=== PATIENT | male | born 1950 | race African-American/Black ===

== ENCOUNTER 2019-03-07 05:21 | Inpatient (IN) | payer MEDICARE ==
--- NOTE | 2019-03-07 06:57 | XRay Report ---
PROCEDURE: XR CHEST 1V AP TECHNIQUE: Chest radiograph single view. HISTORY: hypertension COMPARISONS: None . FINDINGS: Heart: The heart is mildly enlarged.. Mediastinum/Vessels: Normal. Lungs/Pleural space: There is bilateral interstitial prominence. Pleural fluid is not seen.. Bony thorax: No acute osseous abnormality. Life support devices: None. IMPRESSION: Cardiomegaly with bilateral interstitial prominence. Congestive heart failure is suspect ed.. This document is electronically signed by Ernesto Barlow MD., March 07 2019 06:55:10 AM ET
--- NOTE | 2019-03-07 07:11 | Emergency Department Report ---
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 He does not complain of any sort of chest pressure tightness or pain. He does speak Tongan and clean well but there is some difficulty as he is a very vague historian. 5 days ago he did not feel well. He describes it as a dizziness. I think he is referring to generalized weakness. He gave in "cupping". He states that that made him feel better. Last night he had an episode of shortness of breath without any sort of chest discomfort. He denies cough he denies leg pain cramping or swelling. His drove him to the hospital last night. The patient has been in this country for many years. He's had no recent travel. 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 He said no sick contacts. He denies previous hospitalization. 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 -: Gradual Consistency: now resolved Improves with: none Worsens with: none Associated Symptoms: denies other symptoms, shortness of breath - Related Data Allergies Allergy/AdvReac Type Severity Reaction Status Date / Time shellfish derived Allergy Itching Verified 03/07/19 05:58 seafoods Allergy Itching Uncoded 03/07/19 05:57 ED Review of Systems ROS: Stated complaint: CHEST PAIN Other details as noted in HPI Constitutional: malaise, weakness. denies: chills, fever Eyes: denies: eye pain, eye discharge, vision change ENT: denies: ear pain, throat pain Respiratory: shortness of breath. denies: cough, wheezing Cardiovascular: denies: chest pain, palpitations Endocrine: no symptoms reported Gastrointestinal: denies: abdominal pain, nausea, diarrhea Genitourinary: denies: urgency, dysuria Musculoskeletal: denies: back pain, joint swelling, arthralgia Skin: denies: rash, lesions Neurological: denies: headache, weakness, paresthesias Psychiatric: denies: anxiety, depression Hematological/Lymphatic: denies: easy bleeding, easy bruising ED Past Medical Hx - Past Medical History Previous Medical History?: No - Surgical History Additional Surgical History: 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 Cataract surgery O.D. - Social History Smoking Status: Former Smoker Substance Use Type: None ED Physical Exam - General Limitations: No Limitations General appearance: alert, in no apparent distress - Head Head exam: Present: atraumatic, normocephalic - Eye Eye exam: Present: normal appearance. Absent: scleral icterus - ENT ENT exam: Present: mucous membranes moist - Neck Neck exam: Present: normal inspection. Absent: tenderness, meningismus - Respiratory Respiratory exam: Present: normal lung sounds bilaterally. Absent: respiratory distress - Cardiovascular Cardiovascular Exam: Present: regular rate, normal rhythm. Absent: systolic murmur, diastolic murmur, rubs, gallop - GI/Abdominal GI/Abdominal exam: Present: soft, normal bowel sounds. Absent: distended, tenderness, guarding, rebound, rigid - Rectal Rectal exam: Present: deferred - Extremities Exam Extremities exam: Present: normal capillary refill, other (toe amputation right foot, 2 erythematous circumferential cupping burleson right posterior shoulder). Absent: calf tenderness - Back Exam Back exam: Present: normal inspection - Neurological Exam Neurological exam: Present: alert, oriented X3, CN II-XII intact. Absent: motor sensory deficit - Psychiatric Psychiatric exam: Present: normal affect, normal mood - Skin Skin exam: Present: warm, dry, intact, normal color. Absent: rash ED Course Vital Signs 03/07/19 03/07/19 03/07/19 05:25 05:58 07:00 Temperature 97.6 F 98.3 F Pulse Rate 101 H 88 90 Respiratory 18 20 20 Rate Blood Pressure 137/83 113/69 Blood Pressure 126/78 [Left] O2 Sat by Pulse 89 93 95 Oximetry - Reevaluation(s) Reevaluation #1: Discussed with cardiology, Dr. Oakes. They state that they will see the patient within the next or 2. I believe he has a non-STEMI associated with CHF. They are aware. I will heparinize him at this point. They asked the hospitalist to admit 03/07/19 08:22 Reevaluation #2: Discussed with hospitalist. Dr. Teran to admit. 03/07/19 08:38 ED Medical Decision Making - Lab Data Result diagrams: 03/07/19 07:08 Laboratory Results - last 24 hr 03/07/19 03/07/19 03/07/19 07:08 07:08 07:08 PT 12.7 INR 0.98 APTT 32.6 D-Dimer 190.62 Sodium 142 Potassium 3.8 Chloride 104.7 Carbon Dioxide 23 Anion Gap 18 BUN 15 Creatinine 1.0 Estimated GFR > 60 BUN/Creatinine Ratio 15 Glucose 115 H Calcium 8.4 Magnesium 2.10 Total Bilirubin 0.40 Direct Bilirubin < 0.2 AST 26 ALT 32 Alkaline Phosphatase 35 CK-MB (CK-2) 5.1 H Troponin T 1.140 H* NT-Pro-B Natriuret Pep 3720 H Total Protein 6.2 L Albumin 3.6 L Albumin/Globulin Ratio 1.4 - EKG Data -: EKG Interpreted by Me EKG shows normal: sinus rhythm Rate: normal - EKG Data Interpretation: LVH (left atrial enlargement, suggesting LVH, suggests associated repolarization abnormality secondary to LVH, consider ischemia, occasional ectopic beat) - Radiology Data Radiology results: image reviewed (chest x-ray appears consistent with cardiomegaly and CHF) Heart: The heart is mildly enlarged.. Mediastinum/Vessels: Normal. Lungs/Pleural space: There is bilateral interstitial prominence. Pleural fluid is not seen.. Bony thorax: No acute osseous abnormality. Life support devices: None. IMPRESSION: Cardiomegaly with bilateral interstitial prominence. Congestive heart failure is suspected.. Critical Care Time: Yes Critical care time in (mins) excluding proc time.: 60 Critical care attestation.: If time is entered above; I have spent that time in minutes in the direct care of this critically ill patient, excluding procedure time. ED Disposition Clinical Impression: Non-STEMI (non-ST elevated myocardial infarction) Congestive heart failure Qualifiers: Heart failure type: unspecified Heart failure chronicity: acute Qualified Code(s): I50.9 - Heart failure, unspecified Disposition: DC-09 OP ADMIT IP TO THIS HOSP Is pt being admited?: Yes Does the pt Need Aspirin: Yes Condition: Stable Referrals: SANDRA MOORE MD [Primary Care Provider] - 3-5 Days Time of Disposition: 08:40
[2019-03-07 07:54] LABS: INR 0.98 (0.87-1.13)
[2019-03-07 07:55] LABS: Partial Thromboplastin Time 32.6 Sec. (24.2-36.6)
[2019-03-07 08:02] LABS: Creatine Kinase MB 5.1 ng/mL (0.0-4.0)
[2019-03-07 08:08] LABS: Alanine Aminotransferase 32 units/L (7-56); Albumin 3.6 g/dL (3.9-5); BUN/Creatinine Ratio 15; Blood Urea Nitrogen 15 mg/dL (9-20); Calcium 8.4 mg/dL (8.4-10.2); Hemolysis Index 5
[2019-03-07 08:11] LABS: Bilirubin,Direct < 0.2 mg/dL (0-0.2)
[2019-03-07] MEDS ORDERED: LASIX IV ONE (08:19)
[2019-03-07] MEDS ORDERED: HEPARIN 10,000 UNITS/10 ML IV ONE (08:20)
[2019-03-07] MEDS ORDERED: ASPIRIN PO ONE (08:21)
[2019-03-07 08:52] LABS: Chol/HDL Ratio 4.5 %
[2019-03-07 09:01] LABS: Hematocrit 39.2 % (35.5-45.6); Hemoglobin 13.6 gm/dl (11.8-15.2)
[2019-03-07] MEDS: HEPARIN/ 0.45% NACL-25,000 UNIT/500 ML 25,000 UNIT/500 ML BAG IV SCH (09:01)
[2019-03-07] MEDS ORDERED: MORPHINE IV PRN (09:36)
--- NOTE | 2019-03-07 09:36 | History and Physical Report ---
History of Present Illness Date of examination: 03/07/19 Date of admission: 03/07/19 Chief complaint: Shortness of breath, elevated troponin level, CHF exacerbation. History of present illness: Patient is a 68-year-old gentleman who has a history of congestive heart f ailure, diabetes and hypertension started having left-sided dull chest pain yesterday. 7-8/10 in severity. Chest pain was exertional, none radiatory and Intermittent. Denies any diaphoresis. Has shortness of breath. His father has a history of [place]. He is a 10 pack-year current smoker. At the Emergency Department Initial Cardiac Enzyme Was 1.14. BNP was 3720. Chest X-Ray showed evidence of pulmonary congestion. Admission was requested. Past History Past Medical History: diabetes, hypertension Medications and Allergies Allergies Allergy/AdvReac Type Severity Reaction Status Date / Time shellfish derived Allergy Itching Verified 03/07/19 05:58 seafoods Allergy Itching Uncoded 03/07/19 05:57 Active Meds: Active Medications Heparin Sodium/Sodium Chloride (Heparin/ 0.45% Nacl-25,000 Unit/500 Ml) 25,000 unit in 500 mls @ 20 mls/hr IV TITRATE VAN; Protocol Last Admin: 03/07/19 09:01 Dose: 1,000 units/hr, 20 mls/hr Documented by: Review of systems Constitutional: Well Nourished and Well developed. Head: NC/ AT Eyes: Denies any visual impairments. No discharge from the eyes Nose: Denies any rhinorrhea or epistaxis Throats: Denies any post nasal drainage. Ears: Denies any hearing deficits Cardiovascular system: Has exertional chest pain, shortness of breath. no orthopnea, paroxysmal nocturnal dyspnea, or palpitation. Respiratory system: Denies any cough, difficulty breathing, wheezing, pleuritic chest pain, Gastrointestinal system: Denies any abdominal pain, nausea vomiting, hematemesis or melena. Neurological system: Denies any headache, slurred speech, facial droop, lateralizing weakness Genitalia system: Denies any dysuria, urinary frequency or urgency, urethral discharge Skin: No rashes, hyperpigmented spots. Hematological: Denies any cervical tenderness hemorrhages or petechia. Immunological: Denies any multiple septic spots, Lymphatic: Denies any generalized lymphadenopathy. Endocrine: Denies any polyuria, polydipsia, polyphagia. No heat or cold intolerance. Musculoskeletal system: No joint pain or swelling. Psych: No visual, tactile, auditory or hallucination Exam - Physical Exam Narrative exam: Constitutional: Well-nourished well-developed. Chest pain on sitting from a lying position. Head: Normocephalic atraumatic Eyes: Pupils are equal round and reactive to light Nose: No enlarged turbinates, no septal deviation. Mouth: Moist mucous membranes. Neck: Supple no thyromegaly. No bruit. No JVD Heart: Regular rate and rhythm, S1-S2 normal. No rubs murmurs or gallop Lungs: Clear to auscultation bilaterally. no rales or rhonchi Abdomen: Soft, nontender. Bowel sound are present. Extremities: No edema, no cyanosis, no clubbing. Neuro: Alert oriented Oriented x3. No focal sensory or motor deficit. Skin: No rashes or hyperpigmented spots Musculoskeletal system: No joint pain or swelling Hematological: No petechia or subcutanous hemorrhages. Immunological: No multiple septic spots on the skin Lymphatic: No generalized lymphadenopathy Psychiatry: Euthymic. Calm. - Constitutional Vitals: Temp Pulse Resp BP Pulse Ox 98.3 F 90 20 113/69 95 03/07/19 05:58 03/07/19 07:00 03/07/19 07:00 03/07/19 07:00 03/07/19 07:00 Results - Labs CBC & Chem 7: 03/07/19 08:54 03/07/19 07:08 Labs: Abnormal lab results 03/07/19 03/07/19 Range/Units 07:08 07:08 Glucose 115 H (75-100) mg/dL Total Creatine Kinase 259 H (55-170) units/L CK-MB (CK-2) 5.1 H (0.0-4.0) ng/mL Troponin T 1.140 H* (0.00-0.029) ng/mL NT-Pro-B Natriuret Pep 3720 H (0-900) pg/mL Total Protein 6.2 L (6.3-8.2) g/dL Albumin 3.6 L (3.9-5) g/dL Triglycerides 160 H (2-149) mg/dL LDL Cholesterol Direct 132 H (50-130) mg/dL Assessment and Plan 68-year-old gentleman who has a history of diabetes mellitus, hypertension, strong family history of myocardial infarction presented to emergency department with left-sided chest pain shortness of breath. Initial troponin level was elevated to 1.14. At BNP level of 3574. Chest x-ray was remarkable for pulmonary congestion. Commenced on IV heparin and aspirin and nitroglycerin. Cardiology consult obtained. - NSTEMI Commence pt on Oxygen, ASA, nitroglycerin. BB and insulin drip. Consulted and discussed with Cardiology who advised that pt should be on heparin drip Serial Roxane and repeat EKG, lipid profile - Elevated Troponin Recommend cardiac carth Discussed with cardiology -Heart failure pending Systolic function evaluation Comments patient on strict input and outputs, daily weights, 2 g sodium diet, diuresis, beta blockers, Pardeep, statins - T2DM Obtain A1c and a microalbumin Commence patient on sliding scale insulin Consistent carbohydrates diet - Pt is full code - DVT and GI PPx: on Heparin and add Pepcid
[2019-03-07] MEDS ORDERED: COREG PO SCH (10:00)
[2019-03-07] MEDS: BABY ASPIRIN PO SCH (10:05)
[2019-03-07] MEDS ORDERED: D50W (25GM) Syringe IV PRN (10:44)
[2019-03-07] MEDS ORDERED: K-DUR PO ONE (10:49)
[2019-03-07] MEDS: K-DUR PO SCH (10:55)
[2019-03-07] MEDS: ALDACTONE PO SCH (11:51)
[2019-03-07] MEDS: ZESTRIL PO SCH ×2 (11:53→21:48)
[2019-03-07] MEDS: LASIX PO SCH (11:54)
--- NOTE | 2019-03-07 14:51 | Consultation ---
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 He does not complain of any sort of chest pressure or tightness or pain. He does speak broken Hebrew and he is a very vague historian. 5 days ago he did not feel well. He describes it as a dizziness. I think he is referring to generalized weakness. Last night he had an episode of shortness of breath without any chest pain. His drove him to hospital. Smokes 10 cigarettes.No alcohol intake. Past History Past Medical History: diabetes, hypertension, hyperlipidemia Social history: smoking Medications and Allergies Allergies Allergy/AdvReac Type Severity Reaction Status Date / Time shellfish derived Allergy Itching Verified 03/07/19 05:58 seafoods Allergy Itching Uncoded 03/07/19 05:57 Active Meds: Active Medications Aspirin (Baby Aspirin) 325 mg PO QDAY [facility] Last Admin: 03/07/19 10:05 Dose: Not Given Documented by: Dextrose (D50w (25gm) Syringe) 50 ml IV PRN PRN PRN Reason: Hypoglycemia Furosemide (Lasix) 40 mg PO QDAY [facility] Last Admin: 03/07/19 11:54 Dose: Not Given Documented by: Heparin Sodium/Sodium Chloride (Heparin/ 0.45% Nacl-25,000 Unit/500 Ml) 25,000 unit in 500 mls @ 20 mls/hr IV TITRATE [facility]; Protocol Last Admin: 03/07/19 09:01 Dose: 1,000 units/hr, 20 mls/hr Documented by: Lisinopril (Zestril) 2.5 mg PO BID [facility] Last Admin: 03/07/19 11:53 Dose: 2.5 mg Documented by: Metoprolol Tartrate (Lopressor) 12.5 mg PO BID [facility] Morphine Sulfate (Morphine) 2 mg IV Q5MIN PRN PRN Reason: Chest Pain unrelieved by NTG Nitroglycerin (Nitro Dur) 0.1 mg TD QDAY@0600 [facility] Potassium Chloride (K-Dur) 20 meq PO QDAY [facility] Last Admin: 03/07/19 10:55 Dose: 20 meq Documented by: Spironolactone (Aldactone) 12.5 mg PO QDAY [facility] Last Admin: 03/07/19 11:51 Dose: 12.5 mg Documented by: Review of Systems Constitutional: weakness Cardiovascular: orthopnea, dyspnea on exertion, no palpitations, no rapid/irregu lar heart beat, no syncope, no leg edema Respiratory: no cough, no hemoptysis, no wheezing, no sleep apnea Physical Examination Vital Signs Temp Pulse Resp BP Pulse Ox 97.6 F 101 H 18 137/83 89 03/07/19 05:25 03/07/19 05:25 03/07/19 05:25 03/07/19 05:25 03/07/19 05:25 General appearance: no acute distress HEENT: Positive: PERRL, EOMI, Mucus Membranes Moist Neck: Positive: neck supple. Negative: thyromegaly, JVD/HJR Cardiac: Positive: Regular Rhythm, Systolic Murmur (2/6 holosystolic murmur at apex.) Lungs: Positive: clear to auscultation, Normal Breath Sounds Neuro: Positive: Grossly Intact Abdomen: Positive: Soft, Active Bowel Sounds. Negative: Organomegaly Skin: Positive: Clear Extremities: Absent: edema Results 03/07/19 08:54 03/07/19 07:08 Cardiac Enzymes 03/07/19 Range/Units 07:08 AST 26 (5-40) units/L CK-MB (CK-2) 5.1 H (0.0-4.0) ng/mL Coagulation 03/07/19 Range/Units 07:08 PT 12.7 (12.2-14.9) Sec. INR 0.98 (0.87-1.13) APTT 32.6 (24.2-36.6) Sec. Lipids 03/07/19 Range/Units 07:08 Triglycerides 160 H (2-149) mg/dL Cholesterol 189 (50-199) mg/dL HDL Cholesterol 42 (40-59) mg/dL Cholesterol/HDL Ratio 4.50 % CBC 03/07/19 Range/Units 08:54 Hgb 13.6 (11.8-15.2) gm/dl Hct 39.2 (35.5-45.6) % Plt Count 238 (140-440) K/mm3 Comprehensive Metabolic Panel 03/07/19 Range/Units 07:08 Sodium 142 (137-145) mmol/L Potassium 3.8 (3.6-5.0) mmol/L Chloride 104.7 (98-107) mmol/L Carbon Dioxide 23 (22-30) mmol/L BUN 15 (9-20) mg/dL Creatinine 1.0 (0.8-1.5) mg/dL Glucose 115 H (75-100) mg/dL Calcium 8.4 (8.4-10.2) mg/dL Direct Bilirubin < 0.2 (0-0.2) mg/dL AST 26 (5-40) units/L ALT 32 (7-56) units/L Alkaline Phosphatase 35 (35-129) units/L Total Protein 6.2 L (6.3-8.2) g/dL Albumin 3.6 L (3.9-5) g/dL - Imaging and Cardiology Echo: image reviewed Cardiac cath: pending EKG: image reviewed (SR. ST depression in lateral leads suggestive of ischemia or subsndocardial Mi.) Assessment and Plan NSTEMI. Mild pumonary edema on CXR. Marked Lv dilation with severe systolic dysfunction. Hyperlipdemia. Discussion: Patient is not having any chest pain. No on going ischemia or distress. Therefore will do cardiac catheterization to-, to day being Friday. I have discussed with senior functional analyst for cath for our group. Aspirin,lasix as needed, Heparin, Beta blockers if BP permits and high intensity statins.
[2019-03-07] MEDS ORDERED: NACL 0.9% 500 ML 500 ML IV SCH (16:00)
[2019-03-07 17:00] LABS: INR 1.03 (0.87-1.13)
[2019-03-07] MEDS: LOPRESSOR PO SCH ×2 (21:07→21:47)
[2019-03-08] MEDS ORDERED: NITRO DUR TD SCH (06:00)
--- NOTE | 2019-03-08 08:15 | Progress Note ---
Assessment and Plan 68-year-old gentleman who has a history of diabetes mellitus, hypertension, strong family history of myocardial infarction presented to emergency department with left-sided chest pain shortness of breath. Initial troponin level was elevated to 1.14. At BNP level of 3574. Chest x-ray was remarkable for pulmonary congestion. Commenced on IV heparin and aspirin and nitroglycerin. Cardiology consult obtained. - NSTEMI Continue on Oxygen, ASA, nitroglycerin. BB and heparin drip. Consulted and discussed with Cardiology who advised that pt should be on heparin drip Serial Roxane and repeat EKG, lipid profile - Elevated Troponin trending up Possible cardiac cath Discussed with cardiology yesterday -Heart failure pending Systolic function evaluation Comments patient on strict input and outputs, daily weights, 2 g sodium diet, diuresis, beta blockers, Pardeep, statins - T2DM Obtain A1c and a microalbumin Commence patient on sliding scale insulin Consistent carbohydrates diet - Pt is full code - DVT and GI PPx: on Heparin and add Pepcid Subjective Date of service: 03/08/19 Principal diagnosis: chest pain, and [place], acute on chronic CHF. Interval history: Chest pain improvement. She has shortness of breath. No orthopnea present, distant. Objective - Exam Narrative Exam: Constitutional: Well-nourished well-developed. Chest pain on sitting from a lying position. Head: Normocephalic atraumatic Eyes: Pupils are equal round and reactive to light Nose: No enlarged turbinates, no septal deviation. Mouth: Moist mucous membranes. Neck: Supple no thyromegaly. No bruit. No JVD Heart: Regular rate and rhythm, S1-S2 normal. No rubs murmurs or gallop Lungs: Clear to auscultation bilaterally. no rales or rhonchi Abdomen: Soft, nontender. Bowel sound are present. Extremities: No edema, no cyanosis, no clubbing. Neuro: Alert oriented Oriented x3. No focal sensory or motor deficit. Skin: No rashes or hyperpigmented spots Musculoskeletal system: No joint pain or swelling Hematological: No petechia or subcutanous hemorrhages. Immunological: No multiple septic spots on the skin Lymphatic: No generalized lymphadenopathy Psychiatry: Euthymic. Calm. - Constitutional Vitals: Vital Signs - 12hr 03/07/19 03/08/19 03/08/19 23:14 02:00 04:02 Temperature 97.1 F L 97.7 F Pulse Rate 79 72 75 Respiratory 17 17 Rate Blood Pressure 107/66 94/58 O2 Sat by Pulse 90 94 Oximetry - Labs CBC & Chem 7: 03/08/19 07:30 03/08/19 07:30 Labs: Abnormal lab results 03/07/19 03/07/19 03/07/19 Range/Units 07:08 07:08 10:01 Glucose 115 H (75-100) mg/dL Total Creatine Kinase 259 H (55-170) units/L Troponin T 1.140 H* 1.180 H* (0.00-0.029) ng/mL NT-Pro-B Natriuret Pep 3720 H (0-900) pg/mL Total Protein 6.2 L (6.3-8.2) g/dL Albumin 3.6 L (3.9-5) g/dL Triglycerides 160 H (2-149) mg/dL LDL Cholesterol Direct 132 H (50-130) mg/dL 03/07/19 03/07/19 Range/Units 15:23 17:59 Glucose (75-100) mg/dL Total Creatine Kinase (55-170) units/L Troponin T 1.200 H* 1.250 H* (0.00-0.029) ng/mL NT-Pro-B Natriuret Pep (0-900) pg/mL Total Protein (6.3-8.2) g/dL Albumin (3.9-5) g/dL Triglycerides (2-149) mg/dL LDL Cholesterol Direct (50-130) mg/dL
[2019-03-08] MEDS ORDERED: ASPIRIN ONE (08:18)
[2019-03-08 08:20] LABS: Basophils % (Auto) 0.7 % (0.0-1.8); Eosinophils # (Auto) 0.2 K/mm3 (0.0-0.4); Eosinophils % (Auto) 2.7 % (0.0-4.3); Hematocrit 36.7 % (35.5-45.6); Hemoglobin 12.8 gm/dl (11.8-15.2); Lymphocytes # (Auto) 2.1 K/mm3 (1.2-5.4); Mean Corpuscular HGB Conc 35 % (32-34); Mean Corpuscular Volume 93 fl (84-94); Monocytes # (Auto) 0.5 K/mm3 (0.0-0.8); Monocytes % (Auto) 8.3 % (0.0-7.3); Platelet Count 226 K/mm3 (140-440); Red Blood Count 3.95 M/mm3 (3.65-5.03); Red Cell Distribution Width 13.4 % (13.2-15.2)
[2019-03-08] MEDS: BABY ASPIRIN PO SCH ×2 (08:22→10:59)
[2019-03-08] MEDS ORDERED: NACL 0.9% 500 ML 500 ML ONE (08:26)
[2019-03-08 08:46] LABS: Alanine Aminotransferase 27 units/L (7-56); Albumin 3.7 g/dL (3.9-5); BUN/Creatinine Ratio 15; Blood Urea Nitrogen 17 mg/dL (9-20); Calcium 8.3 mg/dL (8.4-10.2); Hemolysis Index 3
[2019-03-08] MEDS ORDERED: SUBLIMAZE ONE (09:25)
[2019-03-08] MEDS ORDERED: HEPARIN/NS 5000 UNIT/500ML(CATH LAB) 1,000 ML IR ONE (09:25)
[2019-03-08] MEDS ORDERED: HEPARIN 10,000 UNITS/10 ML ONE (09:25)
[2019-03-08] MEDS ORDERED: CALAN ONE (09:25)
[2019-03-08] MEDS ORDERED: XYLOCAINE 2% INFILTRATI ONE (09:25)
[2019-03-08] MEDS ORDERED: VERSED ONE (09:25)
[2019-03-08] MEDS ORDERED: NITROGLYCERIN SYRINGE 3 ML ONE (09:26)
--- NOTE | 2019-03-08 10:15 | Progress Note ---
Assessment and Plan nstemi acute systolic heart failure htn chol cad rec: in view of severe lv dsyfunction and multiple cad, transfer to [facility] for bypass and cont current meds, heparin and chf meds, transfer to dr ash at [place] emergency department. Subjective Date of service: 03/08/19 Principal diagnosis: chest pain, and [place], acute on chronic CHF. Interval history: no chest pain Objective Vital Signs Temp Pulse Resp BP Pulse Ox 03/08/19 07:37 97.3 F L 74 18 106/65 94 03/08/19 04:02 97.7 F 75 17 94/58 94 03/08/19 02:00 72 03/07/19 23:14 97.1 F L 79 17 107/66 90 03/07/19 19:39 97.7 F 84 17 108/62 91 03/07/19 18:27 74 03/07/19 14:40 81 22 113/71 95 03/07/19 14:30 79 21 113/71 97 03/07/19 14:00 74 20 113/71 95 03/07/19 13:30 78 20 116/74 97 03/07/19 13:00 77 19 116/74 97 03/07/19 12:30 78 17 105/80 98 03/07/19 12:18 89 105/80 03/07/19 11:53 83 108/63 03/07/19 11:51 83 108/63 03/07/19 11:30 74 21 105/80 96 03/07/19 11:00 76 24 105/80 96 03/07/19 10:30 84 15 142/87 98 - Physical Examination General: Appears Well HEENT: Positive: PERRL, EOMI, Mucus Membranes Moist Neck: Positive: neck supple. Negative: thyromegaly, JVD/HJR Cardiac: Positive: Reg Rate and Rhythm Lungs: Positive: clear to auscultation Neuro: Positive: Grossly Intact Abdomen: Positive: Soft, Active Bowel Sounds. Negative: Organomegaly Skin: Positive: Clear Extremities: Absent: edema - Labs and Meds Cardiac Enzymes 03/08/19 Range/Units 07:30 AST 19 (5-40) units/L Coagulation 03/07/19 Range/Units 15:23 PT 13.2 (12.2-14.9) Sec. INR 1.03 (0.87-1.13) CBC 03/08/19 Range/Units 07:30 WBC 6.0 (4.5-11.0) K/mm3 RBC 3.95 (3.65-5.03) M/mm3 Hgb 12.8 (11.8-15.2) gm/dl Hct 36.7 (35.5-45.6) % Plt Count 226 (140-440) K/mm3 Lymph # 2.1 (1.2-5.4) K/mm3 [place] # 0.5 (0.0-0.8) K/mm3 Eos # 0.2 (0.0-0.4) K/mm3 Baso # 0.0 (0.0-0.1) K/mm3 Comprehensive Metabolic Panel 03/08/19 Range/Units 07:30 Sodium 139 (137-145) mmol/L Potassium 3.5 L (3.6-5.0) mmol/L Chloride 100.9 (98-107) mmol/L Carbon Dioxide 25 (22-30) mmol/L BUN 17 (9-20) mg/dL Creatinine 1.1 (0.8-1.5) mg/dL Glucose 108 H (75-100) mg/dL Calcium 8.3 L (8.4-10.2) mg/dL AST 19 (5-40) units/L ALT 27 (7-56) units/L Alkaline Phosphatase 38 (35-129) units/L Total Protein 6.1 L (6.3-8.2) g/dL Albumin 3.7 L (3.9-5) g/dL - Imaging and Cardiology EKG: image reviewed (SR. ST depression in lateral leads suggestive of ischemia or subsndocardial Mi.) Echo: report reviewed (severe lv dsyfunction ), image reviewed Cardiac cath: report reviewed (lt main patent, lad proximal 90% mid 90% lcx mid 90% om1 90% rca proximal 90% mid 99% distal 80% and severe lv dsyfuction ) - Telemetry EKG Rhythm: Sinus Rhythm
--- NOTE | 2019-03-08 10:20 | Event Note ---
Date: 03/08/19 I was called by reports analysis manager after cardiac cath and was informed pt has multiple vessel disease and will need to be transferred to [place]. Called family member's number in the chart to inform her of the transfer, ie pt's mother, Ms Brumfield at [phone]. No response. Left a message. Will call again.
--- NOTE | 2019-03-08 10:49 | Cardiac Catherization Report ---
LEFT HEART CATHETERIZATION CLINICAL INFORMATION: This is a 68-year-old [place]ian male who has severe LV dysfunction with a [id number] DE, is here for a left heart catheterization. The patient was done under moderate sedation, 0.5 mg Versed and 50 mcg of fentanyl. Start time 9:51, finished at 10 o'clock which is 9 minutes of moderate sedation. DESCRIPTION OF PROCEDURE: Procedure was done via the right radial artery, sterile technique, local anesthesia, 6-Prydeinig radial sheath inserted. Left system engaged with a JL3.5 catheter. FINDINGS: Left main large and patent, bifurcates into a large caliber LAD, proximal right before diagonal 1 has 90% lesion, diagonal 1 small to medium caliber and patent, mid LAD has a 95% lesion. Rest of the LAD is patent with mild luminal irregularities. Circumflex ostial 50%, mid 90% and has a 95% OM proximal lesion. Rest of the circumflex and AV groove is patent. RCA engaged with JR4 catheter, dominant vessel, proximal 90%, mid 99%, distal 80%, bifurcates into a small to medium caliber PDA and PLV and you see collaterals feeding into the mid to distal LAD. LV gram shows severe LV dysfunction, EF 15%. LVEDP at 25 mmHg, LV is 105/25, aortic is 105/61. No gradient across the aortic valve on pullback. 5-Prydeinig catheters were all taken over the guidewires, 6-Prydeinig radial sheath was discontinued. Radial dressing applied. No hematoma, no bleeding. SUMMARY: Multivessel disease, severe LV dysfunction. Left main patent, LAD proximal 90%, mid 99%; circumflex ostial 50, mid 90. OM1 95%, RCA proximal 90, mid 99. Distal 80% with right to left collaterals into the LAD. The patient will be transferred to [place] for bypass surgery. JOB# [id number] GALA/JOHNNY
[2019-03-08] MEDS: LASIX PO SCH (10:58)
[2019-03-08] MEDS: ALDACTONE PO SCH (10:58)
[2019-03-08] MEDS: K-DUR PO SCH (10:59)
[2019-03-08] MEDS: LOPRESSOR PO SCH (11:00)
[2019-03-08] MEDS: ZESTRIL PO SCH (11:01)
[2019-03-08] MEDS: HEPARIN/ 0.45% NACL-25,000 UNIT/500 ML 25,000 UNIT/500 ML BAG IV SCH (14:03)
[2019-03-08 17:05] VITALS: BP 106/69
== END 2019-03-08 19:35 | disposition short-term general hospital (02) | DRG 280 ==
LOC: ED 05:21 → CC1 10:32 → 4A 11:35
PROVIDERS: ADMIT Family Medicine; ATTEND Family Medicine
PROC: 4A023N7 Measurement of Cardiac Sampling and Pressure, Left Heart, Percutaneous Approach (ICD-10-PCS; principal; 2019-03-08)
PROC: B2111ZZ Fluoroscopy of Multiple Coronary Arteries using Low Osmolar Contrast (ICD-10-PCS; 2019-03-08)
PROC: B2151ZZ Fluoroscopy of Left Heart using Low Osmolar Contrast (ICD-10-PCS; 2019-03-08)
DX: I21.4 Non-ST elevation (NSTEMI) myocardial infarction (principal); I50.21 Acute systolic (congestive) heart failure; E11.9 Type 2 diabetes mellitus without complications; I11.0 Hypertensive heart disease with heart failure; E78.5 Hyperlipidemia, unspecified; E78.00 Pure hypercholesterolemia, unspecified; I25.10 Atherosclerotic heart disease of native coronary artery without angina pectoris; F17.210 Nicotine dependence, cigarettes, uncomplicated; Z91.013 Allergy to seafood; Z79.84 Long term (current) use of oral hypoglycemic drugs
CPT/HCPCS: 36415; 71045; 80048; 80053; 80061; 80076; 82550; 82553; 82962; 83735; 83880; 84100; 84484; 85014; 85018; 85025; 85049; 85379; 85520; 85610; 85730; 93005; 93010; 93306; 93458; 94760; G0378; A9270-GY; C1894; J1644; J1940; J2250; J2270; J3010; J7040; Q9967

== ENCOUNTER 2019-05-14 00:29 | Emergency (ER) | payer MEDICARE ==
[2019-05-14] MEDS ORDERED: ASPIRIN PO ONE (01:21)
[2019-05-14 01:49] LABS: Basophils # (Auto) 0.1 K/mm3 (0.0-0.1); Basophils % (Auto) 0.9 % (0.0-1.8); Eosinophils # (Auto) 0.1 K/mm3 (0.0-0.4); Eosinophils % (Auto) 1.2 % (0.0-4.3); Hematocrit 33.7 % (35.5-45.6); Hemoglobin 11.3 gm/dl (11.8-15.2); Lymphocytes # (Auto) 1.7 K/mm3 (1.2-5.4); Lymphocytes % (Auto) 20.6 % (13.4-35.0); Mean Corpuscular HGB Conc 34 % (32-34); Mean Corpuscular Volume 92 fl (84-94); Monocytes # (Auto) 0.8 K/mm3 (0.0-0.8); Platelet Count 233 K/mm3 (140-440); Red Blood Count 3.65 M/mm3 (3.65-5.03)
--- NOTE | 2019-05-14 01:55 | XRay Report ---
CHEST 1 VIEW INDICATION: Chest Pain. COMPARISON: 03/07/2019. FINDINGS: Support devices: None. Heart: Stable cardiomegaly status post previous median sternotomy. Lungs/Pleura: No acute air space or interstitial disease. Prior granulomatous exposure. Additional findings: None. IMPRESSION: No acute abnormality. Signer Name: Keith Maynard MD Signed: 05/14/2019 1:51 AM Workstation Name: [id number]
[2019-05-14 02:11] LABS: BUN/Creatinine Ratio 15; Blood Urea Nitrogen 15 mg/dL (9-20); Calcium 8.7 mg/dL (8.4-10.2); Hemolysis Index 5
[2019-05-14] MEDS ORDERED: LASIX IV ONE (02:28)
--- NOTE | 2019-05-14 04:06 | Emergency Department Report ---
ED Shortness of Breath HPI - General Chief Complaint: Dyspnea/Respdistress Stated Complaint: GENERAL WEAKNESS Time Seen by Provider: 05/14/19 02:24 Source: patient Mode of arrival: Ambulatory Limitations: No Limitations - History of Present Illness Initial Comments: Patient is a 69-year-old [place] gentleman who is presenting with some shortness of breath. Patient states over the last week he says some increased shortness of breath with exertion and orthopnea. Patient denies any chest pain. Patient states he is compliant with his medications. Patient in February of this year underwent a cardiac cath. [facility] which showed that he had signi ficant multivessel stenosis. Patient was transferred every 4 bypass. Patient states she's been chest pain-free since the bypass. Patient also complains of some ankle swelling. - Related Data Home Medications Medication Instructions Recorded Confirmed Last Taken Aspirin BABY CHEW TAB 1 tab PO DAILY 05/14/19 05/14/19 Unknown AtorvaSTATin 80 mg PO HS 05/14/19 05/14/19 Unknown Clopidogrel 75 mg PO DAILY 05/14/19 05/14/19 Unknown Famotidine 20 mg PO BID 05/14/19 05/14/19 Unknown Metoprolol Succinate 25 mg PO DAILY 05/14/19 05/14/19 Unknown Spironolactone 25 mg PO DAILY 05/14/19 05/14/19 Unknown Torsemide 40 mg PO DAILY 05/14/19 05/14/19 Unknown Allergies Allergy/AdvReac Type Severity Reaction Status Date / Time shellfish derived Allergy Itching Verified 03/07/19 05:58 seafoods Allergy Itching Uncoded 03/07/19 05:57 ED Review of Systems ROS: Stated complaint: GENERAL WEAKNESS Other details as noted in HPI Comment: All other systems reviewed and negative ED Past Medical Hx - Past Medical History Previous Medical History?: Yes Hx Hypertension: Yes Hx Congestive Heart Failure: Yes Hx GERD: Yes Additional medical history: High Cholesterol - Surgical History Past Surgical History?: Yes Hx Open Heart Surgery: Yes Additional Surgical History: 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 Cataract surgery O.D. - Social History Smoking Status: Never Smoker Substance Use Type: None - Medications Home Medications: Home Medications Medication Instructions Recorded Confirmed Last Taken Type Aspirin BABY CHEW TAB 1 tab PO DAILY 05/14/19 05/14/19 Unknown History AtorvaSTATin 80 mg PO HS 05/14/19 05/14/19 Unknown History Clopidogrel 75 mg PO DAILY 05/14/19 05/14/19 Unknown History Famotidine 20 mg PO BID 05/14/19 05/14/19 Unknown History Metoprolol Succinate 25 mg PO DAILY 05/14/19 05/14/19 Unknown History Spironolactone 25 mg PO DAILY 05/14/19 05/14/19 Unknown History Torsemide 40 mg PO DAILY 05/14/19 05/14/19 Unknown History ED Physical Exam - General Limitations: No Limitations General appearance: alert, in no apparent distress - Head Head exam: Present: atraumatic, normocephalic - Eye Eye exam: Present: normal appearance - ENT ENT exam: Present: mucous membranes moist - Neck Neck exam: Present: normal inspection - Respiratory Respiratory exam: Present: normal lung sounds bilaterally. Absent: respiratory distress, wheezes, rales, rhonchi, chest wall tenderness - Cardiovascular Cardiovascular Exam: Present: regular rate, normal rhythm, normal heart sounds. Absent: systolic murmur, diastolic murmur, rubs, gallop - GI/Abdominal GI/Abdominal exam: Present: soft, normal bowel sounds. Absent: distended, tenderness, guarding, rebound - Rectal Rectal exam: Present: deferred - Extremities Exam Extremities exam: Present: normal inspection, joint swelling (bilateral ankles) - Back Exam Back exam: Present: normal inspection - Neurological Exam Neurological exam: Present: alert, oriented X3 - Psychiatric Psychiatric exam: Present: normal affect, normal mood - Skin Skin exam: Present: warm, dry, intact, normal color. Absent: rash ED Course Vital Signs 05/14/19 05/14/19 05/14/19 00:35 02:33 03:01 Temperature 97.7 F 97.8 F Pulse Rate 87 79 77 Respiratory 18 22 23 Rate Blood Pressure 139/89 128/79 Blood Pressure 139/76 [Left] O2 Sat by Pulse 94 99 100 Oximetry 05/14/19 03:31 Temperature Pulse Rate 77 Respiratory 20 Rate Blood Pressure 128/79 Blood Pressure [Left] O2 Sat by Pulse 87 Oximetry ED Medical Decision Making - Lab Data Result diagrams: 05/14/19 01:35 05/14/19 01:35 Lab Results 05/14/19 05/14/19 05/14/19 Range/Units 01:35 01:35 01:35 WBC 8.4 (4.5-11.0) K/mm3 RBC 3.65 (3.65-5.03) M/mm3 Hgb 11.3 L (11.8-15.2) gm/dl Hct 33.7 L (35.5-45.6) % MCV 92 (84-94) fl MCH 31 (28-32) pg MCHC 34 (32-34) % RDW 15.0 (13.2-15.2) % Plt Count 233 (140-440) K/mm3 Lymph % (Auto) 20.6 (13.4-35.0) % [place] % (Auto) 9.0 H (0.0-7.3) % Eos % (Auto) 1.2 (0.0-4.3) % Baso % (Auto) 0.9 (0.0-1.8) % Lymph # 1.7 (1.2-5.4) K/mm3 [place] # 0.8 (0.0-0.8) K/mm3 Eos # 0.1 (0.0-0.4) K/mm3 Baso # 0.1 (0.0-0.1) K/mm3 Seg Neutrophils % 68.3 (40.0-70.0) % Seg Neutrophils # 5.7 (1.8-7.7) K/mm3 Sodium 138 (137-145) mmol/L Potassium 4.4 (3.6-5.0) mmol/L Chloride 102.9 (98-107) mmol/L Carbon Dioxide 20 L (22-30) mmol/L Anion Gap 20 mmol/L BUN 15 (9-20) mg/dL Creatinine 1.0 (0.8-1.5) mg/dL Estimated GFR > 60 ml/min BUN/Creatinine Ratio 15 % Glucose 120 H (75-100) mg/dL Calcium 8.7 (8.4-10.2) mg/dL Troponin T < 0.010 (0.00-0.029) ng/mL NT-Pro-B Natriuret Pep 00206 H (0-900) pg/mL - EKG Data -: EKG Interpreted by Ak EKG shows normal: sinus rhythm, axis, intervals, QRS complexes (bigeminy present), ST-T waves - Radiology Data [facility] [address] [place] [address] XRay Report Signed Patient: GREG CERNA MR#: [id number] : 1950 Acct:[id number] Age/Sex: 69 / M ADM Date: 05/14/19 Loc: ED Attending Dr: Ordering Physician: SASHA CONTRERAS MD Date of Service: 05/14/19 Procedure(s): XR chest 1V ap Accession Number(s): [id number] cc: SASHA CONTRERAS MD Fluoro Time In Minutes: CHEST 1 VIEW INDICATION: Chest Pain. COMPARISON: 03/07/2019. FINDINGS: Support devices: None. Heart: Stable cardiomegaly status post previous median sternotomy. Lungs/Pleura: No acute air space or interstitial disease. Prior granulomatous exposure. Additional findings: None. IMPRESSION: No acute abnormality. Signer Name: Keith Maynard MD Signed: 05/14/2019 1:51 AM Workstation Name: [id number] Transcribed By: ES Dictated By: Keith Maynard MD Electronically Authenticated By: Keith Maynard MD Signed Date/Time: 05/14/19 0151 - Medical Decision Making Patient is a 69-year-old gentleman who is presenting with some mild heart failure type symptoms. Patient's not have any respiratory distress at baseline. Case was given 40 of IV Lasix and was able to diurese approximately 800 mL of urine. The patient will have his diuretic double dose doubled for the next 2-3 days and the patient is stable for discharge. Critical care attestation.: If time is entered above; I have spent that time in minutes in the direct care of this critically ill patient, excluding procedure time. 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
[2019-05-14 04:28] VITALS: BP 128/89
== END 2019-05-14 04:45 | disposition home or self-care (01) ==
LOC: ED 00:29
DX: I11.0 Hypertensive heart disease with heart failure (principal); I50.9 Heart failure, unspecified; E78.00 Pure hypercholesterolemia, unspecified; K21.9 Gastro-esophageal reflux disease without esophagitis; Z79.899 Other long term (current) drug therapy; Z91.013 Allergy to seafood
CPT/HCPCS: 36415; 71045; 80048; 83880; 84484; 85025; 93005; 93010; 96374; 99284; J1940

== ENCOUNTER 2019-05-16 05:51 | Inpatient (IN) | payer MEDICARE ==
[2019-05-16] MEDS ORDERED: ASPIRIN PO ONE (06:21)
--- NOTE | 2019-05-16 06:52 | XRay Report ---
CHEST 1 VIEW 05/16/2019 6:42 AM INDICATION / CLINICAL INFORMATION: Chest Pain. COMPARISON: Chest x-ray 05/14/2019 FINDINGS: SUPPORT DEVICES: None. HEART / MEDIASTINUM: Sternotomy, CABG and cardiomegaly is again noted LUNGS / PLEURA: Several calcified granulomas are seen within both upper lobes, unchanged No significa nt pulmonary or pleural abnormality. No pneumothorax. ADDITIONAL FINDINGS: No significant additional findings. IMPRESSION: 1. Cardiomegaly without CHF Signer Name: Isidoro Posadas MD Signed: 05/16/2019 6:48 AM Workstation Name: [id number]
[2019-05-16 07:32] LABS: Basophils # (Auto) 0.1 K/mm3 (0.0-0.1); Basophils % (Auto) 1.2 % (0.0-1.8); Eosinophils # (Auto) 0.1 K/mm3 (0.0-0.4); Hematocrit 32.7 % (35.5-45.6); Lymphocytes # (Auto) 1.6 K/mm3 (1.2-5.4); Lymphocytes % (Auto) 26.4 % (13.4-35.0); Mean Corpuscular HGB Conc 34 % (32-34); Mean Corpuscular Volume 92 fl (84-94); Monocytes # (Auto) 0.8 K/mm3 (0.0-0.8); Monocytes % (Auto) 12.3 % (0.0-7.3); Platelet Count 207 K/mm3 (140-440); Red Blood Count 3.55 M/mm3 (3.65-5.03); Red Cell Distribution Width 15.4 % (13.2-15.2)
[2019-05-16 07:55] LABS: BUN/Creatinine Ratio 19; Blood Urea Nitrogen 17 mg/dL (9-20); Hemolysis Index 5
[2019-05-16] MEDS ORDERED: THALITONE PO ONE (08:42)
[2019-05-16] MEDS ORDERED: LASIX IV ONE (08:42)
--- NOTE | 2019-05-16 10:35 | Emergency Department Report ---
ED General Adult HPI - General Chief complaint: Dyspnea/Respdistress Stated complaint: KOLBY/WEAKNESS Time Seen by Provider: 05/16/19 08:41 Source: patient Mode of arrival: Ambulatory Limitations: No Limitations - History of Present Illness Initial comments: Patient is a 69-year-old male past medical history of CABG and congestive heart failure who presents with shortness of breath and leg swelling as been going on for last 3 days. Patient was previously in the emergency department sent home with oral diuretics however patient states that he has been continued to become more more short of breath. Patient shortness of breath is severe is worse with movement nothing makes it better. Patient denies any cough any nausea or any vomiting. - Related Data Home Medications Medication Instructions Recorded Confirmed Last Taken Aspirin BABY CHEW TAB 1 tab PO DAILY 05/14/19 05/14/19 Unknown AtorvaSTATin 80 mg PO HS 05/14/19 05/14/19 Unknown Clopidogrel 75 mg PO DAILY 05/14/19 05/14/19 Unknown Famotidine 20 mg PO BID 05/14/19 05/14/19 Unknown Metoprolol Succinate 25 mg PO DAILY 05/14/19 05/14/19 Unknown Spironolactone 25 mg PO DAILY 05/14/19 05/14/19 Unknown Torsemide 40 mg PO DAILY 05/14/19 05/14/19 Unknown Allergies Allergy/AdvReac Type Severity Reaction Status Date / Time shellfish derived Allergy Itching Verified 03/07/19 05:58 seafoods Allergy Itching Uncoded 03/07/19 05:57 ED Review of Systems ROS: Stated complaint: KOLBY/WEAKNESS Other details as noted in HPI Constitutional: denies: chills, fever Eyes: denies: eye pain, eye discharge, vision change ENT: denies: ear pain, throat pain Respiratory: denies: cough, shortness of breath, wheezing Cardiovascular: denies: chest pain, palpitations Endocrine: no symptoms reported Gastrointestinal: denies: abdominal pain, nausea, diarrhea Genitourinary: denies: urgency, dysuria Musculoskeletal: denies: back pain, joint swelling, arthralgia Skin: denies: rash, lesions Neurological: denies: headache, weakness, paresthesias Psychiatric: denies: anxiety, depression Hematological/Lymphatic: denies: easy bleeding, easy bruising ED Past Medical Hx - Past Medical History Previous Medical History?: Yes Hx Hypertension: Yes Hx Congestive Heart Failure: Yes Hx GERD: Yes Additional medical history: High Cholesterol - Surgical History Past Surgical History?: Yes Hx Open Heart Surgery: Yes Additional Surgical History: 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 Cataract surgery O.D. - Social History Smoking Status: Never Smoker Substance Use Type: None - Medications Home Medications: Home Medications Medication Instructions Recorded Confirmed Last Taken Type Aspirin BABY CHEW TAB 1 tab PO DAILY 05/14/19 05/14/19 Unknown History AtorvaSTATin 80 mg PO HS 05/14/19 05/14/19 Unknown History Clopidogrel 75 mg PO DAILY 05/14/19 05/14/19 Unknown History Famotidine 20 mg PO BID 05/14/19 05/14/19 Unknown History Metoprolol Succinate 25 mg PO DAILY 05/14/19 05/14/19 Unknown History Spironolactone 25 mg PO DAILY 05/14/19 05/14/19 Unknown History Torsemide 40 mg PO DAILY 05/14/19 05/14/19 Unknown History ED Physical Exam - General Limitations: No Limitations General appearance: alert, in no apparent distress - Head Head exam: Present: atraumatic, normocephalic - Eye Eye exam: Present: normal appearance - ENT ENT exam: Present: mucous membranes moist - Neck Neck exam: Present: normal inspection - Respiratory Respiratory exam: Present: normal lung sounds bilaterally. Absent: respiratory distress - Cardiovascular Cardiovascular Exam: Present: regular rate, normal rhythm. Absent: systolic murmur, diastolic murmur, rubs, gallop - GI/Abdominal GI/Abdominal exam: Present: soft, normal bowel sounds - Rectal Rectal exam: Present: deferred - Extremities Exam Extremities exam: Present: normal inspection - Back Exam Back exam: Present: normal inspection - Neurological Exam Neurological exam: Present: alert, oriented X3 - Psychiatric Psychiatric exam: Present: normal affect, normal mood - Skin Skin exam: Present: warm, dry, intact, normal color. Absent: rash ED Course Vital Signs 05/16/19 05/16/19 05/16/19 06:14 08:34 08:45 Temperature 98.6 F Pulse Rate 60 74 77 Respiratory 20 14 19 Rate Blood Pressure 124/82 144/91 O2 Sat by Pulse 99 100 100 Oximetry 05/16/19 05/16/19 09:01 09:15 Temperature Pulse Rate 77 81 Respiratory 21 18 Rate Blood Pressure 144/91 144/91 O2 Sat by Pulse 93 99 Oximetry ED Medical Decision Making - Lab Data Result diagrams: 05/16/19 06:51 05/16/19 06:51 Lab Results 05/16/19 05/16/19 05/16/19 Range/Units 06:51 06:51 06:51 WBC 6.1 (4.5-11.0) K/mm3 RBC 3.55 L (3.65-5.03) M/mm3 Hgb 11.0 L (11.8-15.2) gm/dl Hct 32.7 L (35.5-45.6) % MCV 92 (84-94) fl MCH 31 (28-32) pg MCHC 34 (32-34) % RDW 15.4 H (13.2-15.2) % Plt Count 207 (140-440) K/mm3 Lymph % (Auto) 26.4 (13.4-35.0) % Snyder % (Auto) 12.3 H (0.0-7.3) % Eos % (Auto) 2.0 (0.0-4.3) % Baso % (Auto) 1.2 (0.0-1.8) % Lymph # 1.6 (1.2-5.4) K/mm3 Snyder # 0.8 (0.0-0.8) K/mm3 Eos # 0.1 (0.0-0.4) K/mm3 Baso # 0.1 (0.0-0.1) K/mm3 Seg Neutrophils % 58.1 (40.0-70.0) % Seg Neutrophils # 3.6 (1.8-7.7) K/mm3 Sodium 143 (137-145) mmol/L Potassium 3.9 (3.6-5.0) mmol/L Chloride 105.1 (98-107) mmol/L Carbon Dioxide 24 (22-30) mmol/L Anion Gap 18 mmol/L BUN 17 (9-20) mg/dL Creatinine 0.9 (0.8-1.5) mg/dL Estimated GFR > 60 ml/min BUN/Creatinine Ratio 19 % Glucose 111 H (75-100) mg/dL Calcium 9.0 (8.4-10.2) mg/dL Troponin T < 0.010 (0.00-0.029) ng/mL NT-Pro-B Natriuret Pep 37624 H (0-900) pg/mL 05/16/19 Range/Units 09:10 WBC (4.5-11.0) K/mm3 RBC (3.65-5.03) M/mm3 Hgb (11.8-15.2) gm/dl Hct (35.5-45.6) % MCV (84-94) fl MCH (28-32) pg MCHC (32-34) % RDW (13.2-15.2) % Plt Count (140-440) K/mm3 Lymph % (Auto) (13.4-35.0) % Snyder % (Auto) (0.0-7.3) % Eos % (Auto) (0.0-4.3) % Baso % (Auto) (0.0-1.8) % Lymph # (1.2-5.4) K/mm3 Snyder # (0.0-0.8) K/mm3 Eos # (0.0-0.4) K/mm3 Baso # (0.0-0.1) K/mm3 Seg Neutrophils % (40.0-70.0) % Seg Neutrophils # (1.8-7.7) K/mm3 Sodium (137-145) mmol/L Potassium (3.6-5.0) mmol/L Chloride (98-107) mmol/L Carbon Dioxide (22-30) mmol/L Anion Gap mmol/L BUN (9-20) mg/dL Creatinine (0.8-1.5) mg/dL Estimated GFR ml/min BUN/Creatinine Ratio % Glucose (75-100) mg/dL Calcium (8.4-10.2) mg/dL Troponin T < 0.010 (0.00-0.029) ng/mL NT-Pro-B Natriuret Pep (0-900) pg/mL - EKG Data -: EKG Interpreted by Me - EKG Data 05/16/19 10:51 EKG shows normal sinus rhythm rate 75 left atrial enlargement and premature ventricular complexes T-wave inversions in the lateral leads.. Impression G concerning for ischemia. - Radiology Data Radiology results: report reviewed, image reviewed Chest x-ray: Shows cardiomegaly no acute pulmonary edema - Medical Decision Making Chief medical diagnosis: Congestive heart failure exacerbation Differential medical diagnosis: Non-STEMI, Critical care attestation.: If time is entered above; I have spent that time in minutes in the direct care of this critically ill patient, excluding procedure time. ED Disposition Clinical Impression: Congestive heart failure Qualifiers: Heart failure type: unspecified Heart failure chronicity: unspecified Qualified Code(s): I50.9 - Heart failure, unspecified Disposition: 09 OP ADMIT IP TO THIS HOSP Is pt being admited?: Yes Does the pt Need Aspirin: No Condition: Stable Referrals: PRIMARY CARE, [Primary Care Provider] - 3-5 Days
[2019-05-16] MEDS ORDERED: LOVENOX SUB-Q ONE (11:44)
[2019-05-16] MEDS ORDERED: TYLENOL PO PRN (11:52)
[2019-05-16] MEDS ORDERED: MORPHINE IV PRN (11:52)
[2019-05-16] MEDS ORDERED: ZOFRAN IV PRN (11:52)
[2019-05-16] MEDS ORDERED: REGLAN IV PRN (11:52)
[2019-05-16] MEDS ORDERED: NITROSTAT SL PRN (11:52)
[2019-05-16] MEDS ORDERED: PROVENTIL IH PRN (11:52)
[2019-05-16] MEDS ORDERED: XANAX PO PRN (11:52)
[2019-05-16] MEDS ORDERED: SODIUM CHLORIDE FLUSH SYRINGE 10 ML IV PRN (11:52)
[2019-05-16] MEDS ORDERED: METOPROLOL SUCCINATE 25 MG PO SCH (12:00)
[2019-05-16] MEDS: DEMADEX PO SCH (17:38)
[2019-05-16] MEDS: ALDACTONE PO SCH (17:40)
[2019-05-16] MEDS: PLAVIX PO SCH (17:43)
[2019-05-16] MEDS: TOPROL XL PO SCH (17:44)
[2019-05-16] MEDS: PEPCID IV SCH ×2 (17:44→22:28)
--- NOTE | 2019-05-16 18:28 | History and Physical Report ---
History of Present Illness Date of examination: 05/16/19 Date of admission: 05/16/19 10:38 Chief complaint: Shortness of breath History of present illness: Patient is a 69-year-old male with a history of coronary artery disease status post CABG and subsequent congestive heart failure hypertension presents to the ED with a chief complaint of shortness of breath. Patient states that every time he tries to get in shape to go back to work he becomes short of breath. Patient denies any chest pain does not nocturnal dyspnea denies any diaphoresis nausea or vomiting. Patient states that after his surgery about 3 weeks out he began to try to walk more to get back in shape so he can go back to work. Patient states every time he does he becomes short of breath and his body begins weak. Has any new sick contacts. Has any infections. Denies any diarrhea or c onstipation denies any new medications. As of breath is associated weakness with ambulation. Past History Past Medical History: arrhythmia, CAD, hypertension. denies: hypothyroidism, liver disease, migraines, PVD, pulmonary embolism, renal failure, stroke Past Surgical History: CABG, Other Social history: , lives with family, full code Family history: CAD, hypertension Medications and Allergies Allergies Allergy/AdvReac Type Severity Reaction Status Date / Time shellfish derived Allergy Itching Verified 03/07/19 05:58 seafoods Allergy Itching Uncoded 03/07/19 05:57 Home Medications Medication Instructions Recorded Confirmed Last Taken Type Aspirin BABY CHEW TAB 1 tab PO DAILY 05/14/19 05/16/19 2 Days Ago History ~05/14/19 AtorvaSTATin 80 mg PO HS 05/14/19 05/16/19 2 Days Ago History ~05/14/19 Clopidogrel 75 mg PO DAILY 05/14/19 05/16/19 2 Days Ago History ~05/14/19 Famotidine 20 mg PO BID 05/14/19 05/16/19 2 Days Ago History ~05/14/19 Metoprolol Succinate 25 mg PO DAILY 05/14/19 05/16/19 2 Days Ago History ~05/14/19 Spironolactone 25 mg PO DAILY 05/14/19 05/16/19 2 Days Ago History ~05/14/19 Torsemide 40 mg PO DAILY 05/14/19 05/16/19 Unknown History Active Meds: Active Medications Acetaminophen (Tylenol) 650 mg PO Q4H PRN PRN Reason: Pain MILD(1-3)/Fever >100.5/BOB Albuterol (Proventil) 2.5 mg IH Q4HRT PRN PRN Reason: Shortness Of Breath Alprazolam (Xanax) 0.125 mg PO Q8H PRN PRN Reason: Agitation Aspirin (Baby Aspirin) 81 mg PO QDAY [facility] Atorvastatin Calcium (Lipitor) 80 mg PO QHS [facility] Clopidogrel Bisulfate (Plavix) 75 mg PO QDAY [facility] Last Admin: 05/16/19 17:43 Dose: 75 mg Documented by: Enoxaparin Sodium (Lovenox) 40 mg SUB-Q QDAY@1000 [facility] Famotidine (Pepcid) 10 mg IV BID [facility] Last Admin: 05/16/19 17:44 Dose: 10 mg Documented by: Lisinopril (Zestril) 5 mg PO QDAY [facility] Metoclopramide HCl (Reglan) 10 mg IV Q6H PRN PRN Reason: Nausea And Vomiting Metoprolol Succinate (Toprol Xl) 25 mg PO QDAY [facility] Last Admin: 05/16/19 17:44 Dose: 25 mg Documented by: Morphine Sulfate (Morphine) 2 mg IV Q4H PRN PRN Reason: Pain, Moderate (4-6) Nitroglycerin (Nitrostat) 0.4 mg SL .Q5MIN PRN PRN Reason: Chest Pain Ondansetron HCl (Zofran) 4 mg IV Q8H PRN PRN Reason: Nausea And Vomiting Sodium Chloride (Sodium Chloride Flush Syringe 10 Ml) 10 ml IV BID [facility] Sodium Chloride (Sodium Chloride Flush Syringe 10 Ml) 10 ml IV PRN PRN PRN Reason: LINE FLUSH Spironolactone (Aldactone) 25 mg PO QDAY [facility] Last Admin: 05/16/19 17:40 Dose: 25 mg Documented by: Torsemide (Demadex) 40 mg PO DAILY [facility] Last Admin: 05/16/19 17:38 Dose: 40 mg Documented by: Review of Systems Constitutional: fatigue, weakness, malaise, no weight loss, no weight gain, no fever, no chills, no sweats, no anorexia, no lethargy, no chronic headaches, no poor appetite, no daytime sleepiness Ears, nose, mouth and throat: no ear discharge, no bleeding gums, no mouth pain, no hoarseness, no sore throat, no swelling in throat, no voice changes, no post- nasal drip, no vertigo Cardiovascular: palpitations, edema, shortness of breath, no chest pain, no orthopnea, no rapid/irregular heart beat, no syncope, no lightheadedness, no dyspnea on exertion, no paroxysmal nocturnal dyspnea, no claudication, no phlebitis, no high blood pressure, no leg edema, no decreased exercise tolerance Respiratory: shortness of breath, dyspnea on exertion, no cough, no cough with sputum, no excessive sputum, no hemoptysis, no congestion, no wheezing, no pleurisy, no snoring, no respiratory infections, no home oxygen, no other Gastrointestinal: no abdominal pain, no vomiting, no diarrhea, no change in bowel habits, no hematemesis, no hematochezia, no heartburn, no indigestion, no early satiety, no lactose intolerance Genitourinary Male: no hematuria, no urinary frequency, no incontinence, no erectile dysfunction, no polyuria, no kidney stones Rectal: no incontinence Musculoskeletal: muscle weakness, no neck stiffness, no shooting arm pain, no low back pain, no shooting leg pain, no leg numbness/tingling, no muscle cramps, no limitation of motion, no gait dysfunction, no frequent falls, no arthritis, no other Integumentary: no deferred, no redness, no wounds, no boils, no blisters, no lesions, no depigmentation, no unusual bruising, no foot/leg ulcers Neurological: no transient paralysis, no paralysis, no parathesias, no migraines, no sensory deficit, no double vision Psychiatric: no memory loss, no insomnia, no disorientation, no depression, no anxiety attacks Endocrine: no cold intolerance, no polyphagia, no excessive thirst, no polyuria, no flushing, no proptosis, no thyroid mass, no recent glucocorticoid use Hematologic/Lymphatic: no easy bleeding, no lymphedema Allergic/Immunologic: no allergic rhinitis Exam - Constitutional Vitals: Temp Pulse Resp BP Pulse Ox 98.6 F 76 13 144/66 99 05/16/19 06:14 05/16/19 17:44 05/16/19 16:31 05/16/19 16:31 05/16/19 16:31 General appearance: Present: no acute distress, well-nourished - EENT Eyes: Present: PERRL ENT: hearing intact, clear oral mucosa - Neck Neck: Present: supple, normal ROM. Absent: enlarged thyroid, masses or JVD, cervical LAD, carotid bruits - Respiratory Respiratory effort: normal Respiratory: bilateral: CTA - Cardiovascular Heart Sounds: Present: S1 & S2. Absent: rub, click - Extremities Extremities: pulses symmetrical, No edema Extremity abnormal: edema Peripheral Pulses: within normal limits - Abdominal General gastrointestinal: Present: soft, non-tender, non-distended, normal bowel sounds Male genitourinary: Present: normal - Integumentary Integumentary: Present: clear, warm, dry - Musculoskeletal Musculoskeletal: gait normal, strength equal bilaterally - Psychiatric Psychiatric: appropriate mood/affect, intact judgment & insight - Neurologic Neurologic: CNII-XII intact, moves all extremities Results - Labs CBC & Chem 7: 05/16/19 06:51 05/16/19 06:51 Labs: Laboratory Last Values WBC 6.1 K/mm3 (4.5-11.0) 05/16/19 06:51 RBC 3.55 M/mm3 (3.65-5.03) L 05/16/19 06:51 Hgb 11.0 gm/dl (11.8-15.2) L 05/16/19 06:51 Hct 32.7 % (35.5-45.6) L 05/16/19 06:51 MCV 92 fl (84-94) 05/16/19 06:51 MCH 31 pg (28-32) 05/16/19 06:51 MCHC 34 % (32-34) 05/16/19 06:51 RDW 15.4 % (13.2-15.2) H 05/16/19 06:51 Plt Count 207 K/mm3 (140-440) 05/16/19 06:51 Lymph % (Auto) 26.4 % (13.4-35.0) 05/16/19 06:51 Emanuel % (Auto) 12.3 % (0.0-7.3) H 05/16/19 06:51 Eos % (Auto) 2.0 % (0.0-4.3) 05/16/19 06:51 Baso % (Auto) 1.2 % (0.0-1.8) 05/16/19 06:51 Lymph # 1.6 K/mm3 (1.2-5.4) 05/16/19 06:51 Emanuel # 0.8 K/mm3 (0.0-0.8) 05/16/19 06:51 Eos # 0.1 K/mm3 (0.0-0.4) 05/16/19 06:51 Baso # 0.1 K/mm3 (0.0-0.1) 05/16/19 06:51 Seg Neutrophils % 58.1 % (40.0-70.0) 05/16/19 06:51 Seg Neutrophils # 3.6 K/mm3 (1.8-7.7) 05/16/19 06:51 Sodium 143 mmol/L (137-145) 05/16/19 06:51 Potassium 3.9 mmol/L (3.6-5.0) 05/16/19 06:51 Chloride 105.1 mmol/L (98-107) 05/16/19 06:51 Carbon Dioxide 24 mmol/L (22-30) 05/16/19 06:51 18 mmol/L 05/16/19 06:51 BUN 17 mg/dL (9-20) 05/16/19 06:51 0.9 mg/dL (0.8-1.5) 05/16/19 06:51 Estimated GFR > 60 ml/min 05/16/19 06:51 19 % 05/16/19 06:51 Glucose 111 mg/dL (75-100) H 05/16/19 06:51 Calcium 9.0 mg/dL (8.4-10.2) 05/16/19 06:51 < 0.010 ng/mL (0.00-0.029) 05/16/19 12:46 NT-Pro-B Natriuret Pep 95919 pg/mL (0-900) H 05/16/19 06:51 - Imaging and Cardiology EKG: report reviewed, image reviewed Chest x-ray: report reviewed, image reviewed Assessment and Plan Advance Directives: Yes Plan of care discussed with patient/family: Yes - Patient Problems (1) Coronary artery disease Current Visit: Yes Status: Acute Plan to address problem: Patient status post CABG on Plavix aspirin aggressive antilipid therapy. Patient is chest pain-free. Really it seems that patient has deconditioning as opposed to true cardiac abnormality. On chest x-ray is negative for congestive heart failure. Also no new EKG changes. Patient also has no JVD no lower extremity edema consistent with congestive heart failure. Also patient's history is when he walks it is always at movement in attempts to get back to work. ABG just the patient needs rehabilitation however we'll proceed with workup. Rule out chest pain. Patient's had negative cardiac isoenzymes thus far no changes on clinical exam consistent of [place]. (2) Congestive heart failure Current Visit: Yes Status: Acute Qualifiers: Heart failure type: unspecified Heart failure chronicity: unspecified Qualified Code(s): I50.9 - Heart failure, unspecified Plan to address problem: We'll obtain echo to establish left ventricular function status. Chest x-ray unremarkable as mentioned before patient on diuretic will continue beta ayaan diuretic and afterload reduction. (3) Non-STEMI (non-ST elevated myocardial infarction) Current Visit: No Status: Acute Plan to address problem: Andres beta ayaan aspirin chest pain-free. Cardiac isoenzymes unremarkable thus far 2. (4) Hypertension Current Visit: Yes Status: Acute Plan to address problem: We'll control with metoprolol. No new changes.
[2019-05-16] MEDS ORDERED: PEPCID IV SCH (22:00)
[2019-05-16] MEDS: SODIUM CHLORIDE FLUSH SYRINGE 10 ML IV SCH (22:30)
[2019-05-17 08:07] LABS: Calcium 10.2 mg/dL (8.4-10.2)
[2019-05-17] MEDS ORDERED: NON-FORMULARY (Aspirin Baby Chew Tab 1 TAB) PO SCH (10:00)
--- NOTE | 2019-05-17 10:46 | Consultation ---
History of Present Illness Consult date: 05/17/19 Requesting physician: MISHA REYES Consult reason: shortness of breath History of present illness: Mr. Santiago is a 69 y/o male with a history of CAD s/p CABG x3 in February 2019, chronic HFrEF and hypertension who presented to [facility] with shortness of breath for five days, which occurs while walking and at rest. 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 He walks for exercise frequently since his CABG so that he may eventually be strong enough to return to work, but the SOB has persisted. Cardiac rehab was recommended after his CABG, but he did not participate. In the ED, a CXR was negative for CHF and troponins were negative. He denies CP and dizziness, but endorses intermittent palpitations. On exam, he is sitting up in bed eating breakfast in no acute distress. An post-CABG echocardiogram in February found an EF of 20 percent, grade 1 diastolic dysfunction, moderately reduced RV function, mild TR, mild MR and mild pulmonic valve insufficiency. Past History Past Medical History: arrhythmia, CAD, hypertension. denies: hypothyroidism, liver disease, migraines, PVD, pulmonary embolism, renal failure, stroke Past Surgical History: CABG, Other Social history: , lives with family, full code Family history: CAD, hypertension Medications and Allergies Allergies Allergy/AdvReac Type Severity Reaction Status Date / Time shellfish derived Allergy Itching Verified 03/07/19 05:58 seafoods Allergy Itching Uncoded 03/07/19 05:57 Home Medications Medication Instructions Recorded Confirmed Last Taken Type Aspirin BABY CHEW TAB 1 tab PO DAILY 05/14/19 05/16/19 2 Days Ago History ~05/14/19 AtorvaSTATin 80 mg PO HS 05/14/19 05/16/19 2 Days Ago History ~05/14/19 Clopidogrel 75 mg PO DAILY 05/14/19 05/16/19 2 Days Ago History ~05/14/19 Famotidine 20 mg PO BID 05/14/19 05/16/19 2 Days Ago History ~05/14/19 Metoprolol Succinate 25 mg PO DAILY 05/14/19 05/16/19 2 Days Ago History ~05/14/19 Spironolactone 25 mg PO DAILY 05/14/19 05/16/19 2 Days Ago History ~05/14/19 Torsemide 40 mg PO DAILY 05/14/19 05/16/19 Unknown History Active Meds: Active Medications Acetaminophen (Tylenol) 650 mg PO Q4H PRN PRN Reason: Pain MILD(1-3)/Fever >100.5/BOB Albuterol (Proventil) 2.5 mg IH Q4HRT PRN PRN Reason: Shortness Of Breath Alprazolam (Xanax) 0.125 mg PO Q8H PRN PRN Reason: Agitation Aspirin (Baby Aspirin) 81 mg PO QDAY [facility] Atorvastatin Calcium (Lipitor) 80 mg PO QHS [facility] Last Admin: 05/16/19 22:28 Dose: 80 mg Documented by: Clopidogrel Bisulfate (Plavix) 75 mg PO QDAY [facility] Last Admin: 05/16/19 17:43 Dose: 75 mg Documented by: Enoxaparin Sodium (Lovenox) 40 mg SUB-Q QDAY@1000 [facility] Famotidine (Pepcid) 10 mg IV BID [facility] Last Admin: 05/16/19 22:28 Dose: 10 mg Documented by: Lisinopril (Zestril) 5 mg PO QDAY [facility] Metoclopramide HCl (Reglan) 10 mg IV Q6H PRN PRN Reason: Nausea And Vomiting Metoprolol Succinate (Toprol Xl) 25 mg PO QDAY [facility] Last Admin: 05/16/19 17:44 Dose: 25 mg Documented by: Morphine Sulfate (Morphine) 2 mg IV Q4H PRN PRN Reason: Pain, Moderate (4-6) Nitroglycerin (Nitrostat) 0.4 mg SL .Q5MIN PRN PRN Reason: Chest Pain Ondansetron HCl (Zofran) 4 mg IV Q8H PRN PRN Reason: Nausea And Vomiting Sodium Chloride (Sodium Chloride Flush Syringe 10 Ml) 10 ml IV BID [facility] Last Admin: 05/16/19 22:30 Dose: 10 ml Documented by: Sodium Chloride (Sodium Chloride Flush Syringe 10 Ml) 10 ml IV PRN PRN PRN Reason: LINE FLUSH Spironolactone (Aldactone) 25 mg PO QDAY [facility] Last Admin: 05/16/19 17:40 Dose: 25 mg Documented by: Torsemide (Demadex) 40 mg PO DAILY [facility] Last Admin: 05/16/19 17:38 Dose: 40 mg Documented by: Review of Systems All systems: negative Cardiovascular: shortness of breath Physical Examination Vital Signs Temp Pulse Resp BP Pulse Ox 98.6 F 60 20 124/82 99 05/16/19 06:14 05/16/19 06:14 05/16/19 06:14 05/16/19 06:14 05/16/19 06:14 General appearance: no acute distress HEENT: Positive: PERRL Neck: Positive: neck supple Cardiac: Positive: Reg Rate and Rhythm Lungs: Positive: Normal Exam Neuro: Positive: Grossly Intact Abdomen: Positive: Unremarkable Male genitourinary: Positive: deferred Incision: Incision Site (sternotomy site c/d/i and healed ) Musculoskeletal: Normal Range of Motion Extremities: Present: normal Results 05/16/19 06:51 05/17/19 07:01 Comprehensive Metabolic Panel 05/17/19 Range/Units 07:01 Sodium 142 (137-145) mmol/L Potassium 3.6 (3.6-5.0) mmol/L Chloride 93.8 L (98-107) mmol/L Carbon Dioxide 31 H D (22-30) mmol/L BUN 23 H (9-20) mg/dL Creatinine 1.4 D (0.8-1.5) mg/dL Glucose 107 H (75-100) mg/dL Calcium 10.2 (8.4-10.2) mg/dL - Imaging and Cardiology Echo: report reviewed (02/2019: EF of 20 percent, grade 1 diastolic dysfunction, moderately reduced RV function, mild TR, mild MR and mild pulmonic valve insufficiency. ) - EKG Interpretation EKG: sinus rhythm EKG interpretations - Telemetry EKG Rhythm: Sinus Rhythm Assessment and Plan Mr. Santiago is a 69 y/o male admitted with SOB for the past five days. He has a history of CAD s/p CABG in February, chronic HFrEF and hypertension. The etiology of his SOB could be r/t general deconditioning post-CABG; however, we will schedule a Lexiscan stress test and order a repeat echocardiogram. Continue ASA, Plavix, statin and GDMT for chronic HFrEF. Further recommendations pending echo results. The patient has been seen in conjunction with Dr. Lexie Kelley, who agrees with the assessment and plan of care. - Patient Problems (1) Shortness of breath Current Visit: Yes Status: Acute (2) S/P CABG x 3 Current Visit: Yes Status: Chronic (3) Chronic HFrEF (heart failure with reduced ejection fraction) Current Visit: Yes Status: Chronic (4) Coronary artery disease Current Visit: Yes Status: Chronic (5) Hypertension Current Visit: Yes Status: Chronic
--- NOTE | 2019-05-17 11:23 | Progress Note ---
Assessment and Plan Assessment and plan: Mr. Santiago is a 69 yo Chinese man who speaks Swiss well with a history of recent CABG in February, chronic systolic heart failure and hypertension who presented with SOB, -Chest pains: stress test am per Cardiology -S/P CABG x 3 -Chronic HFrEF (heart failure with reduced ejection fraction), no acute exac erbation mention by Cardiology -No NSTEMI mentioned by shrub planter -Coronary artery disease -Hypertension History Interval history: Patient was seen and examined. Follow-up on current diagnosis of SOB, resolved. No overnight events reported to me. Patient denies any chest pain, shortness breath, nausea/vomiting or severe headaches. Imaging, nursing note, chart, labs and old chart reviewed. Discussed with patient. Hospitalist Physical - Physical exam Narrative exam: Gen: WDWN, NAD, Awake, Alert, Orientated HEENT: NCAT, EOMI, PERRL, OP Clear Neck: supple, no adenopathy, no thyromegaly, no JVD CVS/Heart: RRR, normal S1S2, pulses present bilaterally Chest/Lungs: CTA B, Symmetrical chest expansion, good air entry bilaterally GI/Abdomen: soft, NTND, good bowel sounds, no guarding or rebound /Bladder: no suprapubic tenderness, no CVA or paraspinal tenderness Extermity/Skin: no c/c/e, no obvious rash MSK: FROM x 4 Neuro: CN 2-12 grossly intact, no new focal deficits Psych: calm - Constitutional Vitals: Temp Pulse Resp BP Pulse Ox 96.4 F L 81 18 111/75 100 05/17/19 07:39 05/17/19 07:39 05/17/19 07:39 05/17/19 07:39 05/17/19 07:39 General appearance: Present: no acute distress Results - Labs CBC & Chem 7: 05/16/19 06:51 05/17/19 07:01 Labs: Laboratory Last Values WBC 6.1 K/mm3 (4.5-11.0) 05/16/19 06:51 RBC 3.55 M/mm3 (3.65-5.03) L 05/16/19 06:51 Hgb 11.0 gm/dl (11.8-15.2) L 05/16/19 06:51 Hct 32.7 % (35.5-45.6) L 05/16/19 06:51 MCV 92 fl (84-94) 05/16/19 06:51 MCH 31 pg (28-32) 05/16/19 06:51 MCHC 34 % (32-34) 05/16/19 06:51 RDW 15.4 % (13.2-15.2) H 05/16/19 06:51 Plt Count 207 K/mm3 (140-440) 05/16/19 06:51 Lymph % (Auto) 26.4 % (13.4-35.0) 05/16/19 06:51 [place] % (Auto) 12.3 % (0.0-7.3) H 05/16/19 06:51 Eos % (Auto) 2.0 % (0.0-4.3) 05/16/19 06:51 Baso % (Auto) 1.2 % (0.0-1.8) 05/16/19 06:51 Lymph # 1.6 K/mm3 (1.2-5.4) 05/16/19 06:51 [place] # 0.8 K/mm3 (0.0-0.8) 05/16/19 06:51 Eos # 0.1 K/mm3 (0.0-0.4) 05/16/19 06:51 Baso # 0.1 K/mm3 (0.0-0.1) 05/16/19 06:51 Seg Neutrophils % 58.1 % (40.0-70.0) 05/16/19 06:51 Seg Neutrophils # 3.6 K/mm3 (1.8-7.7) 05/16/19 06:51 Sodium 142 mmol/L (137-145) 05/17/19 07:01 Potassium 3.6 mmol/L (3.6-5.0) 05/17/19 07:01 Chloride 93.8 mmol/L (98-107) L 05/17/19 07:01 Carbon Dioxide 31 mmol/L (22-30) H D 05/17/19 07:01 21 mmol/L 05/17/19 07:01 BUN 23 mg/dL (9-20) H 05/17/19 07:01 1.4 mg/dL (0.8-1.5) D 05/17/19 07:01 Estimated GFR 51 ml/min 05/17/19 07:01 16 % 05/17/19 07:01 Glucose 107 mg/dL (75-100) H 05/17/19 07:01 Calcium 10.2 mg/dL (8.4-10.2) 05/17/19 07:01 < 0.010 ng/mL (0.00-0.029) 05/16/19 12:46 NT-Pro-B Natriuret Pep 52761 pg/mL (0-900) H 05/16/19 06:51 Active Medications - Current Medications Current Medications: Generic Name Dose Route Start Last Admin Trade Name Freq PRN Reason Stop Dose Admin Acetaminophen 650 mg 05/16/19 11:52 Tylenol PO Q4H PRN Pain MILD(1-3)/Fever >100.5/BOB Albuterol 2.5 mg 05/16/19 11:52 Proventil IH Q4HRT PRN Shortness Of Breath Alprazolam 0.125 mg 05/16/19 11:52 Xanax PO Q8H PRN Agitation Aspirin 81 mg 05/17/19 10:00 Baby Aspirin PO QDAY [facility] Atorvastatin Calcium 80 mg 05/16/19 22:00 05/16/19 22:28 Lipitor PO 80 mg QHS [facility] Administration Clopidogrel Bisulfate 75 mg 05/16/19 12:00 05/16/19 17:43 Plavix PO 75 mg QDAY [facility] Administration Enoxaparin Sodium 40 mg 05/17/19 10:00 Lovenox SUB-Q QDAY@1000 [facility] Famotidine 10 mg 05/16/19 12:00 05/16/19 22:28 Pepcid IV 10 mg BID [facility] Administration Lisinopril 5 mg 05/17/19 10:00 Zestril PO QDAY [facility] Metoclopramide HCl 10 mg 05/16/19 11:52 Reglan IV Q6H PRN Nausea And Vomiting Metoprolol Succinate 25 mg 05/16/19 12:30 05/16/19 17:44 Toprol Xl PO 25 mg QDAY [facility] Administration Morphine Sulfate 2 mg 05/16/19 11:52 Morphine IV Q4H PRN Pain, Moderate (4-6) Nitroglycerin 0.4 mg 05/16/19 11:52 Nitrostat SL .Q5MIN PRN Chest Pain Ondansetron HCl 4 mg 05/16/19 11:52 Zofran IV Q8H PRN Nausea And Vomiting Sodium Chloride 10 ml 05/16/19 22:00 05/16/19 22:30 Sodium Chloride Flush Syringe 10 Ml IV 10 ml BID [facility] Administration Sodium Chloride 10 ml 05/16/19 11:52 Sodium Chloride Flush Syringe 10 Ml IV PRN PRN LINE FLUSH Spironolactone 25 mg 05/16/19 12:00 05/16/19 17:40 Aldactone PO 25 mg QDAY [facility] Administration Torsemide 40 mg 05/16/19 12:00 05/16/19 17:38 Demadex PO 40 mg DAILY [facility] Administration
[2019-05-17] MEDS: DEMADEX PO SCH (13:21)
[2019-05-17] MEDS: PEPCID IV SCH ×2 (13:21→21:31)
[2019-05-17] MEDS: BABY ASPIRIN PO SCH (13:22)
[2019-05-17] MEDS: TOPROL XL PO SCH (13:22)
[2019-05-17] MEDS: ALDACTONE PO SCH (13:23)
[2019-05-17] MEDS: LOVENOX SUB-Q SCH (13:24)
[2019-05-17] MEDS: PLAVIX PO SCH (13:24)
[2019-05-17] MEDS: ZESTRIL PO SCH (13:25)
[2019-05-17] MEDS: SODIUM CHLORIDE FLUSH SYRINGE 10 ML IV SCH ×2 (13:25→21:31)
--- NOTE | 2019-05-18 08:27 | Progress Note ---
Assessment and Plan Assessment and plan: Mr. Santiago is a 69 yo [place] man who speaks Jordanian well with a history of recent CABG in February, chronic systolic heart failure and hypertension who presented with SOB that has been ongoing for about 5 days. Post CABG EF was noted at 15- 20% Patient is currently on ASA, Plavix, statin and GDMT for chron ic HFrEF. -Atypical Chest pains: stress test today per Cardiology -Shortness of breath: ?secondary to deconditioning, vs acute exacerabatiion of heart failure vs new ischemic event although less likely -S/P CABG x 3 -Chronic HFrEF (heart failure with reduced ejection fraction), no acute exacerbation mention by Cardiology, No NSTEMI mentioned by policy change clerks supervisor -Coronary artery disease -Hypertension Hospitalist Physical - Physical exam Narrative exam: Gen: WDWN, NAD, Awake, Alert, Orientated HEENT: NCAT, EOMI, PERRL, OP Clear Neck: supple, no adenopathy, no thyromegaly, no JVD CVS/Heart: RRR, normal S1S2, pulses present bilaterally Chest/Lungs: CTA B, Symmetrical chest expansion, good air entry bilaterally GI/Abdomen: soft, NTND, good bowel sounds, no guarding or rebound /Bladder: no suprapubic tenderness, no CVA or paraspinal tenderness Extermity/Skin: no c/c/e, no obvious rash MSK: FROM x 4 Neuro: CN 2-12 grossly intact, no new focal deficits Psych: calm - Constitutional Vitals: Temp Pulse Resp BP Pulse Ox 98.0 F 46 L 18 133/58 96 05/18/19 04:24 05/18/19 04:24 05/18/19 04:24 05/18/19 04:24 05/18/19 04:24 General appearance: Present: no acute distress Results - Labs CBC & Chem 7: 05/16/19 06:51 05/17/19 07:01 Labs: Laboratory Last Values WBC 6.1 K/mm3 (4.5-11.0) 05/16/19 06:51 RBC 3.55 M/mm3 (3.65-5.03) L 05/16/19 06:51 Hgb 11.0 gm/dl (11.8-15.2) L 05/16/19 06:51 Hct 32.7 % (35.5-45.6) L 05/16/19 06:51 MCV 92 fl (84-94) 05/16/19 06:51 MCH 31 pg (28-32) 05/16/19 06:51 MCHC 34 % (32-34) 05/16/19 06:51 RDW 15.4 % (13.2-15.2) H 05/16/19 06:51 Plt Count 207 K/mm3 (140-440) 05/16/19 06:51 Lymph % (Auto) 26.4 % (13.4-35.0) 05/16/19 06:51 Coal % (Auto) 12.3 % (0.0-7.3) H 05/16/19 06:51 Eos % (Auto) 2.0 % (0.0-4.3) 05/16/19 06:51 Baso % (Auto) 1.2 % (0.0-1.8) 05/16/19 06:51 Lymph # 1.6 K/mm3 (1.2-5.4) 05/16/19 06:51 Coal # 0.8 K/mm3 (0.0-0.8) 05/16/19 06:51 Eos # 0.1 K/mm3 (0.0-0.4) 05/16/19 06:51 Baso # 0.1 K/mm3 (0.0-0.1) 05/16/19 06:51 Seg Neutrophils % 58.1 % (40.0-70.0) 05/16/19 06:51 Seg Neutrophils # 3.6 K/mm3 (1.8-7.7) 05/16/19 06:51 Sodium 142 mmol/L (137-145) 05/17/19 07:01 Potassium 3.6 mmol/L (3.6-5.0) 05/17/19 07:01 Chloride 93.8 mmol/L (98-107) L 05/17/19 07:01 Carbon Dioxide 31 mmol/L (22-30) H D 05/17/19 07:01 21 mmol/L 05/17/19 07:01 BUN 23 mg/dL (9-20) H 05/17/19 07:01 1.4 mg/dL (0.8-1.5) D 05/17/19 07:01 Estimated GFR 51 ml/min 05/17/19 07:01 16 % 05/17/19 07:01 Glucose 107 mg/dL (75-100) H 05/17/19 07:01 Calcium 10.2 mg/dL (8.4-10.2) 05/17/19 07:01 < 0.010 ng/mL (0.00-0.029) 05/16/19 12:46 NT-Pro-B Natriuret Pep 61994 pg/mL (0-900) H 05/16/19 06:51 Active Medications - Current Medications Current Medications: Generic Name Dose Route Start Last Admin Trade Name Freq PRN Reason Stop Dose Admin Acetaminophen 650 mg 05/16/19 11:52 Tylenol PO Q4H PRN Pain MILD(1-3)/Fever >100.5/BOB Albuterol 2.5 mg 05/16/19 11:52 Proventil IH Q4HRT PRN Shortness Of Breath Alprazolam 0.125 mg 05/16/19 11:52 Xanax PO Q8H PRN Agitation Aspirin 81 mg 05/17/19 10:00 05/17/19 13:22 Baby Aspirin PO 81 mg QDAY VAN Administration Atorvastatin Calcium 80 mg 05/16/19 22:00 05/17/19 21:30 Lipitor PO 80 mg QHS VAN Administration Clopidogrel Bisulfate 75 mg 05/16/19 12:00 05/17/19 13:24 Plavix PO 75 mg QDAY VAN Administration Enoxaparin Sodium 40 mg 05/17/19 10:00 05/17/19 13:24 Lovenox SUB-Q 40 mg QDAY@1000 VAN Administration Famotidine 10 mg 05/16/19 12:00 05/17/19 21:31 Pepcid IV 10 mg BID VAN Administration Lisinopril 5 mg 05/17/19 10:00 05/17/19 13:25 Zestril PO Not Given QDAY VAN Metoclopramide HCl 10 mg 05/16/19 11:52 Reglan IV Q6H PRN Nausea And Vomiting Metoprolol Succinate 25 mg 05/16/19 12:30 05/17/19 13:22 Toprol Xl PO 25 mg QDAY VAN Administration Morphine Sulfate 2 mg 05/16/19 11:52 Morphine IV Q4H PRN Pain, Moderate (4-6) Nitroglycerin 0.4 mg 05/16/19 11:52 Nitrostat SL .Q5MIN PRN Chest Pain Ondansetron HCl 4 mg 05/16/19 11:52 Zofran IV Q8H PRN Nausea And Vomiting Sodium Chloride 10 ml 05/16/19 22:00 05/17/19 21:31 Sodium Chloride Flush Syringe 10 Ml IV 10 ml BID VAN Administration Sodium Chloride 10 ml 05/16/19 11:52 Sodium Chloride Flush Syringe 10 Ml IV PRN PRN LINE FLUSH Spironolactone 25 mg 05/16/19 12:00 05/17/19 13:23 Aldactone PO Not Given QDAY VAN Torsemide 40 mg 05/16/19 12:00 05/17/19 13:21 Demadex PO 40 mg DAILY VAN Administration
[2019-05-18] MEDS ORDERED: LEXISCAN IV ONE (08:28)
[2019-05-18 10:48] VITALS: BP 103/56
[2019-05-18] MEDS: PLAVIX PO SCH (10:48)
[2019-05-18] MEDS: LOVENOX SUB-Q SCH (10:49)
[2019-05-18] MEDS: DEMADEX PO SCH (10:49)
[2019-05-18] MEDS: BABY ASPIRIN PO SCH (10:49)
[2019-05-18] MEDS: SODIUM CHLORIDE FLUSH SYRINGE 10 ML IV SCH (10:49)
[2019-05-18] MEDS: TOPROL XL PO SCH (10:49)
[2019-05-18] MEDS: ZESTRIL PO SCH (10:50)
[2019-05-18] MEDS: ALDACTONE PO SCH (10:50)
[2019-05-18] MEDS ORDERED: PEPCID PO SCH (11:00)
--- NOTE | 2019-05-18 12:09 | Progress Note ---
Assessment and Plan Mr. Santiago is a 69 y/o male admitted with SOB for the past five days. He has a history of CAD s/p CABG x3 in February, ICMP, chronic HFrEF and hypertension. S/p lexiscan MPI stress test this AM which was negative for significant ischemia, EF 19%. Echo reviewed - EF 15-20%, abnormal diastolic function, RV systolic function severely reduced, mild MR. Currently stable cardiac status. Dyspnea improved. Pt may d/c home from cardiology standpoint on his home cardiac regimen. Recommend pt follow up with his primary biological aide at [facility], Dr. Doll, within 1-2 weeks of hospital discharge. The patient has been seen in conjunction with Dr. Albert who agrees with the assessment and plan of care. - Patient Problems (1) Dyspnea Current Visit: Yes Status: Resolved (2) Chronic HFrEF (heart failure with reduced ejection fraction) Current Visit: Yes Status: Chronic (3) Ischemic cardiomyopathy Current Visit: Yes Status: Chronic (4) Coronary artery disease Current Visit: Yes Status: Chronic (5) S/P CABG x 3 Current Visit: Yes Status: Chronic (6) Hypertension Current Visit: Yes Status: Chronic Subjective Date of service: 05/18/19 Principal diagnosis: sob Interval history: pt for stress test, lying flat comfortably, no current complaints. in SR with freq PVCs noted overnight. Objective Last Vital Signs Temp 98.0 F 05/18/19 04:24 Pulse 92 H 05/18/19 10:50 Resp 20 05/18/19 10:45 BP 103/56 05/18/19 10:50 Pulse Ox 97 05/18/19 10:45 - Physical Examination General: No Apparent Distress HEENT: Positive: PERRL Neck: Positive: neck supple Cardiac: Positive: Reg Rate and Rhythm, S1/S2 Lungs: Positive: Decreased Breath Sounds Neuro: Positive: Grossly Intact Abdomen: Positive: Unremarkable Incision: Incision Site (sternotomy site c/d/i and healed ) Musculoskeletal: Normal Range of Motion Extremities: Present: normal - Imaging and Cardiology EKG: report reviewed, image reviewed Echo: report reviewed (02/2019: EF of 20 percent, grade 1 diastolic dysfunction, moderately reduced RV function, mild TR, mild MR and mild pulmonic valve insufficiency. )
--- NOTE | 2019-05-18 15:23 | Discharge Summary ---
Providers - Providers Date of Admission: 05/16/19 10:38 Attending physician: MAC CRABTREE MD 05/16/19 11:52 Consult to Physician [CONS] Routine Comment: Consulting Provider: MONY MENESES Physician Instructions: Reason For Exam: sob Primary care physician: LINOTYPER Hospitalization Reason for admission: heart failure Condition: Stable Hospital course: Mr. Santiago is a 69 yo Nepali man who speaks Chinese well with a history of recent CABG in February, chronic systolic heart failure and hypertension who presented with SOB that has been ongoing for about 5 days. Post CABG EF was noted at 15- 20% Patient is currently on ASA, Plavix, statin and GDMT for chronic HFrEF. -Atypical Chest pains: stress test today AND WAS NEGTIVE per Cardiology -acute exacerabatiion of heart failure -S/P CABG x 3 -Chronic HFrEF (heart failure with reduced ejection fraction), no acute exacerbation mention by Cardiology, No NSTEMI mentioned by rn oncology research -Coronary artery disease -Hypertension Disposition: TO HOME OR SELFCARE Time spent for discharge: 35 mins Core Measure Documentation - Palliative Care Palliative Care/ Comfort Measures: Not Applicable - Core Measures Any of the following diagnoses?: heart failure - Heart Failure Discharge Requirements TOY/ARB for LVSD if EF <40%: Yes Beta ayaan at discharge: Yes Exam - Physical Exam Narrative exam: Gen: WDWN, NAD, Awake, Alert, Orientated HEENT: NCAT, EOMI, PERRL, OP Clear Neck: supple, no adenopathy, no thyromegaly, no JVD CVS/Heart: RRR, normal S1S2, pulses present bilaterally Chest/Lungs: CTA B, Symmetrical chest expansion, good air entry bilaterally GI/Abdomen: soft, NTND, good bowel sounds, no guarding or rebound /Bladder: no suprapubic tenderness, no CVA or paraspinal tenderness Extermity/Skin: no c/c/e, no obvious rash MSK: FROM x 4 Neuro: CN 2-12 grossly intact, no new focal deficits Psych: calm - Constitutional Vitals: Temp Pulse Resp BP Pulse Ox 98.0 F 92 H 20 103/56 97 05/18/19 04:24 05/18/19 10:50 05/18/19 10:45 05/18/19 10:50 05/18/19 10:45 Plan Activity: advance as tolerated, fall precautions Diet: low fat, low salt Special Instructions: record daily BP diary Follow up with: PRIMARY CARE, [Primary Care Provider] - 3-5 Days MARKEL MELGOZA MD [Staff Physician] - 7 Days IVÁN SMITH MD [Referring] - 7 Days Prescriptions: Famotidine [Pepcid] 10 mg PO BID #60 tablet Lisinopril [Zestril TAB] 5 mg PO QDAY #30 tablet
--- NOTE | 2019-05-18 23:24 | Treadmill Report ---
[facility] NUCLEAR SCAN REPORT AGE: 69. SEX: Male. REFERRING PHYSICIAN: Hospitalist, Dr. Pelletier. REVIEWED AND DICTATED BY: Ciaran Hernandez M.D. DESCRIPTION OF PROCEDURE: The patient received 10 mCi of technetium 99m Myoview intravenously under resting conditions. Resting myocardial perfusion scan was done. Subsequently, the patient received 0.4 mg of intravenous Lexiscan. After 30-60 minutes, post-stress images were done. Computerized analysis of post-stress scan was done. The post-stress nuclear scan revealed a small mild distal inferior, inferoapical perfusion defect. The resting scan revealed minimal reversibility in this region. Transient ischemic dilatation of the left ventricle was seen in the stress images with a TID ratio of 1.23. The gated study revealed severe global left ventricular systolic dysfunction with the LVEF of 19%. The left ventricle is moderately dilated. CONCLUSIONS: 1. Small mild predominantly fixed minimally reversible distal inferior/inferoapical perfusion defect. 2. Transient ischemic dilatation of the left ventricle in the stress images with a TID ratio of 1.23. 3. Moderately dilated left ventricle with severe global left ventricular systolic dysfunction with LVEF around 19%. JOB# [id number] [facility]
== END 2019-05-18 17:40 | disposition home or self-care (01) | DRG 303 ==
LOC: ED 05:51 → 4A 10:38
PROVIDERS: ADMIT Internal Medicine; ATTEND Internal Medicine
DX: I25.10 Atherosclerotic heart disease of native coronary artery without angina pectoris (principal); I50.22 Chronic systolic (congestive) heart failure; R07.89 Other chest pain; I11.0 Hypertensive heart disease with heart failure; I25.5 Ischemic cardiomyopathy; K21.9 Gastro-esophageal reflux disease without esophagitis; I08.1 Rheumatic disorders of both mitral and tricuspid valves; Z98.41 Cataract extraction status, right eye; Z95.1 Presence of aortocoronary bypass graft; Z79.82 Long term (current) use of aspirin; Z91.013 Allergy to seafood; Z89.421 Acquired absence of other right toe(s)
CPT/HCPCS: 36415; 71045; 78452; 80048; 83880; 84484; 85025; 87116; 93005; 93010; 93017; 93306; 96374; G0378; A9270-GY; A9502; J1650; J1940; J2785